=== PATIENT | male | born 1965 | race Two or more races ===

== ENCOUNTER 2025-06-22 09:40 | Outpatient (CLI) | payer OTHER ==
[2025-06-22 11:46] LABS: Estimated GFR - POC 100.0
== END 2025-06-22 09:41 | disposition home or self-care (01) ==
LOC: SCSMRI 09:40
PROVIDERS: ATTEND Radiology Radiation Oncology
DX: C34.90 Malignant neoplasm of unspecified part of unspecified bronchus or lung (principal); C79.31 Secondary malignant neoplasm of brain; S06.5XAA Traumatic subdural hemorrhage with loss of consciousness status unknown, initial encounter; G93.6 Cerebral edema; Z98.890 Other specified postprocedural states
CPT/HCPCS: 36415; 70553; 82565